=== PATIENT | female | born 1990 | race Caucasian/White ===

== ENCOUNTER → 2024-12-05 10:29 | Outpatient (REF) | payer OTHER, SELFPAY | LOC: WDC 10:29 | PROVIDERS: ATTENDING PHYSICIAN Student in an Organized Health Care Education/Training Program; FAMILY PHYSICIAN Family Medicine | DX: N63.42 Unspecified lump in left breast, subareolar (principal) | CPT/HCPCS: 76642; 77062; 77066 ==